=== PATIENT | male | born 2000 | race Caucasian/White ===

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

== ENCOUNTER 2023-06-02 09:26 | Outpatient (CLI) | payer OTHER | END 2023-06-02 09:27 | disposition home or self-care (01) | LOC: BICMRI 09:26 | PROVIDERS: ATTEND Orthopaedic Surgery | DX: S83.281A Other tear of lateral meniscus, current injury, right knee, initial encounter (principal) ==